=== PATIENT | female | born 1985 | race Caucasian/White ===

== ENCOUNTER 2017-04-15 18:45 | Inpatient (IN) | payer OTHER ==
[2017-04-15] MEDS ORDERED: TUBERCULIN PPD 5 TU/0.1ML SYRINGE (IN PATIENT USE ONLY) ID ONE (19:15)
[2017-04-15 19:50] VITALS: BMI 29.9
[2017-04-15] MEDS ORDERED: AMPICILLIN - 2 GM in SODIUM CHLORIDE 100 ML IVPB ONE (20:36)
[2017-04-15] MEDS ORDERED: OXYTOCIN 15 UNITS/ LR 250 ML 15 UNIT/250 ML INFUS.BAG IVPB SCH (20:45)
[2017-04-15] MEDS: DEXTROSE 5%-LACTATED RINGERS 1,000 ML IV SCH (20:45)
[2017-04-15 20:51] LABS: BASO % 0.1 % (0-2.0); EOS % 1.4 % (0-4.5); MCH 32.5 pg (25.7-33.7); MCHC 33.3 g/dl (32.0-36.0); MEAN CELL VOLUME 97.7 fl (80-96); MEAN PLT VOLUME 9.5 fl (7.5-11.1); NEUT % 74.1 % (42.8-82.8); PLATELET COUNT 258 K/MM3 (134-434); RDW 12.8 % (11.6-15.6); WHITE BLOOD COUNT 11.6 K/mm3 (4.0-10.0)
--- NOTE | 2017-04-15 20:54 | HP ---
Past Medical History - Admission History of Present Illness: 31 yo @ 40 3/7 wks LMP consistent with first trimester ultrasound, EDC complicated by: 1. GBS positive 2. 70 lb weight gain - normal BP; 24 h urine protein (04/07/17) - 304 EFW (04/11/17) - 3851 96% 3. choroid plexus cyst - normal aneuploidy screen 4. Abnormal GCT 141 - GTT WNL x 2 Patient presented for scheduled induction of labor, noted to have spontaneous rupture of membrane, clear fluid at 1830. She reports irregular contractions, no vaginal bleeding. She endorses movement. History Source: Patient Limitations to Obtaining History: No Limitations - Past Medical History Cardiovascular: No: HTN Pulmonary: No: Asthma Gastrointestinal: No: GERD ...: 1 ...Para: 0 ...Term: 0 ...: 0 ...Spon : 0 ...Induced : 0 ...Multiple Gestation: 0 ...LMP: 07/06/16 ... Weeks Gestation by Dates: 40.3 ...EDC by Dates: 04/12/17 ...EDC by Sono: 04/12/17 Heme/Onc: No: Anemia - Past Surgical History Past Surgical History: Yes: None Hx Myomectomy: No Hx Transabdominal Cerclage: No - Smoking History Smoking history: Never smoked - Alcohol/Substance Use Hx Alcohol Use: No Home Medications - Allergies Allergies/Adverse Reactions: Allergies Allergy/AdvReac Type Severity Reaction Status Date / Time latex Allergy Mild Verified 04/13/17 22:16 - Home Medications Home Medications: Ambulatory Orders Vit No.130/Iron/FA [ Tablet] 1 tab PO DAILY 04/07/17 Ferrous Sulfate [Feosol] 325 mg PO Q2D 04/13/17 Family Disease History - Family Disease History Family History: Denies Review of Systems - Review of Systems Constitutional: reports: No Symptoms HENT: reports: No Symptoms Neck: reports: No Symptoms Cardiovascular: reports: No Symptoms Respiratory: reports: No Symptoms Gastrointestinal: reports: No Symptoms Genitourinary: reports: No Symptoms Musculoskeletal: reports: No Symptoms Integumentary: reports: No Symptoms Endocrine: reports: No Symptoms Hematology/Lymphatic: reports: No Symptoms Physical Exam - Maternity Vital Signs: Vital Signs Temperature 98.3 F 04/15/17 20:00 Pulse Rate 94 H 04/15/17 20:00 Respiratory Rate 18 04/15/17 20:00 Blood Pressure 127/75 04/15/17 20:00 O2 Sat by Pulse Oximetry (%) Constitutional: Yes: Well Nourished, No Distress, Calm Cardiovascular: Yes: Regular Rate and Rhythm Lungs: Clear to auscultation - Abdominal Exam/OB Number of Fetuses: Single Presentation: Vertex Contractions: Yes Regularity: Regular Intensity: Mild/Mod Monitor Mode: External - Vaginal Exam/OB Dilatation (cm): 1 Effacement (%): 50 Amniotic Membrane Status: Ruptured Amniotic Fluid: Yes: Clear Presentation: Vertex/Position Station: -3 - Physical Exam Extremities: Yes: WNL Edema: No Psychiatric: Yes: Alert, Oriented - Labs Lab Results: PNL: A positive, antibody negative; RPR NR; HBsAg negative; HIV negative HCV negative; Hg choco AA; GBS positive Hemorrhage Risk Assessment - Risk Factors Medium Risk Factors: Yes: None High Risk Factors: Yes: None Risk Score: 1 Risk Level: Medium Risk Assessment/Plan 31 yo @ 40 3/7 SROM 1. Admit to L&D 2. Consents reviewed and signed 3. GBS positive 4. Will start pitocin per protocol PRN 5. Will offer pain medication per patient's request 6. Will proceed with expectant management
[2017-04-15] MEDS ORDERED: AMPICILLIN SODIUM 2 GM VIAL ONE (21:01)
[2017-04-15 21:05] LABS: INR 0.88 (0.82-1.09); PROTHROMBIN TIME (PATIENT) 9.9 SEC (9.98-11.88)
[2017-04-15 21:07] LABS: ACTIVATED PTT 24.9 SECONDS (26.9-34.4)
[2017-04-15 21:13] LABS: ANION GAP 9 (8-16); CALCIUM 9.1 mg/dL (8.5-10.1); CO2 23 mmol/L (21-32); CREATININE 0.4 mg/dL (0.55-1.02); GLUCOSE,RANDOM 82 mg/dL (74-106)
[2017-04-15] MEDS ORDERED: PROMETHAZINE HCL 25 MG/1 ML VIAL IVPUSH ONE (22:14)
[2017-04-15] MEDS ORDERED: BUTORPHANOL TARTRATE 1 MG/ML VIAL IVPUSH ONE (22:14)
[2017-04-16] MEDS ORDERED: AMPICILLIN SODIUM 1 GM VIAL ONE ×5 (00:46→17:05)
[2017-04-16] MEDS: AMPICILLIN - 1 GM in SODIUM CHLORIDE 100 ML IVPB SCH ×5 (00:56→17:00)
[2017-04-16] MEDS ORDERED: OXYTOCIN 15 UNITS/ LR 250 ML 15 UNIT/250 ML INFUS.BAG IVPB ONE (01:15)
[2017-04-16] MEDS: DEXTROSE 5%-LACTATED RINGERS 1,000 ML IV SCH ×2 (05:50→14:00)
--- NOTE | 2017-04-16 07:25 | PN ---
Ante-Partal Exam - Subjective Subjective: Patient reports pain with contractions. Declines offer for pain medication. Vital Signs: Vital Signs Temperature 98.1 F 04/16/17 07:00 Pulse Rate 89 04/16/17 07:00 Respiratory Rate 20 04/16/17 07:00 Blood Pressure 138/84 04/16/17 07:00 O2 Sat by Pulse Oximetry (%) Bleeding: No Headache: No Visual changes: No Right upper quadrant pain: No - Contractions Contractions: Yes Regularity: Regular Intensity: Mod/Strong Monitor Mode: External - Exam during Labor Heart Rate: 130 Variability: Moderate Category: I Monitor Accelerations: Present Monitor Decelerations: None Exam: Vaginal Dilatation (cm): 2 Effacement (%): 80 Amniotic Membrane Status: Ruptured Amniotic Fluid: Clear Presentation: Vertex Station: -2 - Intrapartum Hemorrhage Risk Medium Risk Factors: None High Risk Factors: None Risk Score: 0 Risk Level: Low Risk - Assessment/Plan Assessment/Plan: 31 yo pitocin augmentation of labor 1. Pitocin on 5, good cervical change, will continue pitocin per protocol 2. GBS positive, will continue ampicillin 3. Will offer pain medication upon patient request 4. Will continue expectant management.
--- NOTE | 2017-04-16 10:28 | PN ---
Progress Note, Labor Vaginal Exam #2 Labor Exam Date: 04/16/17 Labor Exam Time: 10:15 Heart Rate (range): 130 Dilatation: 4 Effacement (%): 80 Amniotic Membrane Status: Ruptured Presentation: Vertex/Position Station: -1 Remarks: 31 yo P0 @ 40+wks Category 1 FHR VSS, afebrile In early labor Monitor BPs 15min discussion about R/B/A to epidural Anesthesia consult recommended cont. monitoring progress of labor EFW 8lb
[2017-04-16] MEDS ORDERED: ELECTROLYTE-148 SOLN 500 ML IV ONE ×2 (16:45→17:45)
[2017-04-16] MEDS ORDERED: FENTANYL/BUPIVACAINE/NS/PF - PCEA - 50 ML DISP.SYRIN EP ONE (17:04)
[2017-04-16] MEDS ORDERED: OXYTOCIN 20 UNITS in 0.9% NS 20 UNIT/1,000 ML INFUS.BAG IV ONE (20:13)
--- NOTE | 2017-04-16 20:14 | PN ---
Progress Note, Labor Vaginal Exam #3 Labor Exam Date: 04/16/17 Labor Exam Time: 19:30 Heart Rate (range): 130s + accels, - decels Dilatation: 5 Effacement (%): 90% Amniotic Membrane Status: Ruptured Presentation: Vertex/Position Station: -1 (31yo P 0 @ 40+ wks IOL for LOF and being postterm on Pitocin of 6mU/min, no progress of labor in 10hr Excessive Weight gain, likely CPD Offered c/section Risks, benefits, alternatives explained Anethesia and Peds aware)
[2017-04-16] MEDS ORDERED: OXYTOCIN 10 UNITS/ML VIAL ONE (20:41)
[2017-04-16] MEDS ORDERED: KETOROLAC TROMETHAMINE 30 MG/1 ML VIAL ONE (21:02)
[2017-04-16] MEDS ORDERED: BENZOCAINE 20% 57 GM BOTTLE TP PRN (21:48)
[2017-04-16] MEDS ORDERED: WITCH HAZEL 50% (TUCKS) 40 PAD/JAR PAD TP PRN (21:48)
[2017-04-16] MEDS ORDERED: IBUPROFEN 800 MG/8 ML IJ IVPB PRN (21:48)
[2017-04-16] MEDS ORDERED: METHYLERGONOVINE MALEATE 0.2 MG/1 ML AMP IM PRN (21:48)
[2017-04-16] MEDS ORDERED: BENZOCAINE 28 GM HEMORRHOIDAL OINTMENT PR PRN (21:48)
[2017-04-16] MEDS ORDERED: IBUPROFEN 600 MG TABLET (FP) PO PRN (21:48)
[2017-04-16] MEDS ORDERED: diphenhydrAMINE HCL 25 MG CAPSULE (FP) PO PRN (21:48)
[2017-04-16] MEDS ORDERED: oxyCODONE HCL 5 MG TABLET PO PRN ×2 (21:48)
--- NOTE | 2017-04-16 21:56 | OP ---
Operative Note - Note: Operative Date: 04/16/17 Pre-Operative Diagnosis: 31yo P0 @ 40+ wks PROM, IOL, CPD Operation: Primary c/section Post-Operative Diagnosis: Same as Pre-op Surgeon: Abi Salas Heavy Equipment Field Mechanic: Az Newsome Anesthesiologist/OPINION POLLS SURVEY WORKER: Tammy Peck Anesthesia: Epidural Specimens Removed: 1. Viable Baby boy, APGARS 9/9, 8lb. 2. Full term placenta Estimated Blood Loss (mls): 500 Drains, Volume Out (mls): 500 Fluid Volume Replaced (mls): 1,200 Operative Report Dictated: Yes
[2017-04-16] MEDS ORDERED: OXYTOCIN 20 UNITS in 0.9% NS 20 UNIT/1,000 ML INFUS.BAG IV SCH (22:00)
[2017-04-16] MEDS ORDERED: DEXTROSE 5%-LACTATED RINGERS 1,000 ML IV SCH (22:00)
--- NOTE | 2017-04-16 22:06 | PN ---
Delivery - Delivery Section: Primary Type of Anesthesia: Epidural Episiotomy/Laceration: None EBL (cc): 500 Delivery, Single - Stages of Labor Date 1st Stage Initiatied: 04/15/17 Time 1st Stage Initiated: 18:45 Date of Delivery: 04/16/17 Time of Delivery: 20:50 Date Placenta Delivered: 04/16/17 Time Placenta Delivered: 20:51 Placenta: Yes: Expressed - Condition of Transportation Associate/Optical Glass Etcher Present: No Gender: Male Position: Left, OA - 1 Minute Total Score: 9 5 Minutes Total Score: 9 - [place] Feeding Plan Initial Plan: Exclusive throughout hospitalization Remarks - Remarks Remarks: See Op note
[2017-04-17] MEDS ORDERED: CEFAZOLIN 1 GM/D5W 50 ML IVPB SCH (02:00)
[2017-04-17] MEDS: CEFAZOLIN 1 GM PUSH 1 GM/10 ML DISP.SYRIN IVPUSH SCH ×2 (02:48→09:49)
[2017-04-17 08:26] LABS: BASO % 0.2 % (0-2.0); EOS % 0.3 % (0-4.5); MCH 31.9 pg (25.7-33.7); MCHC 32.8 g/dl (32.0-36.0); MEAN CELL VOLUME 97.4 fl (80-96); MEAN PLT VOLUME 8.6 fl (7.5-11.1); NEUT % 82.9 % (42.8-82.8); PLATELET COUNT 208 K/MM3 (134-434); RDW 12.8 % (11.6-15.6); WHITE BLOOD COUNT 13.7 K/mm3 (4.0-10.0)
--- NOTE | 2017-04-17 12:03 | PN ---
Progress Note (short form) - Note Progress Note: pod 1c/o mild cramps, no excess vaginal bleeding CBC, BMP 04/17/17 08:00 04/15/17 20:14 Last Vital Signs Temp Pulse Resp BP Pulse Ox 99.2 F 111 H 18 119/69 98 04/17/17 06:00 04/17/17 06:00 04/17/17 06:00 04/17/17 06:00 04/16/17 22:35 abdomen soft, no distension, no cva incision dry, clean no calf tenderness plan ambulate, advance diet, pain management
--- NOTE | 2017-04-17 13:26 | PN ---
Progress Note (short form) - Note Progress Note: POD #1 - s/p under epidural anesthesia with duramorph. VSS. Pt. doing well, resting comfortably in bed. No complaints. Good pain control. No apparent antesthetic complications noted. Continue current care.
[2017-04-17] MEDS ORDERED: BISACODYL 10 MG SUPP.RECT RC PRN (21:48)
[2017-04-17] MEDS: ACETAMINOPHEN 325 MG TABLET (FP) PO PRN (22:53)
[2017-04-17] MEDS: SIMETHICONE 80 MG TAB.CHEW (FP) PO PRN (22:53)
[2017-04-17] MEDS: IBUPROFEN 600 MG TABLET (FP) PO PRN (22:54)
--- NOTE | 2017-04-18 08:18 | PN ---
Post Progress Note - Subjective Subjective: No complaints Post Day: 2 Type of Delivery: Primary C/S Vital Signs: Vital Signs Temperature 98.9 F 04/17/17 21:00 Pulse Rate 115 H 04/17/17 21:00 Respiratory Rate 18 04/17/17 21:00 Blood Pressure 121/75 04/17/17 21:00 O2 Sat by Pulse Oximetry (%) 98 04/16/17 22:35 Breast Exam: Yes: Soft Uterus: Yes: Fundus Firm, Fundus below umbilicus, Non-tender Incision: Yes: Sutures intact Abdomen/GI: Yes: Abdomen soft, Passing flatus, Tolerating PO Lochia: Yes: Rubra Lochia, amount: Small Extremities: Yes: Calves non-tender, Edema (trace) Perineum: Yes: Intact Activity: Ambulating - Labs Labs: CBC WBC 13.7 K/mm3 (4.0-10.0) H 04/17/17 08:00 RBC 3.13 M/mm3 (3.60-5.2) L 04/17/17 08:00 Hgb 10.0 GM/dL (10.7-15.3) L 04/17/17 08:00 Hct 30.5 % (32.4-45.2) L 04/17/17 08:00 MCV 97.4 fl (80-96) H 04/17/17 08:00 MCH 31.9 pg (25.7-33.7) 04/17/17 08:00 MCHC 32.8 g/dl (32.0-36.0) 04/17/17 08:00 RDW 12.8 % (11.6-15.6) 04/17/17 08:00 Plt Count 208 K/MM3 (134-434) 04/17/17 08:00 MPV 8.6 fl (7.5-11.1) 04/17/17 08:00 Neutrophils % 82.9 % (42.8-82.8) H 04/17/17 08:00 Lymphocytes % 9.1 % (8-40) D 04/17/17 08:00 Monocytes % 7.5 % (3.8-10.2) 04/17/17 08:00 Eosinophils % 0.3 % (0-4.5) 04/17/17 08:00 Basophils % 0.2 % (0-2.0) 04/17/17 08:00 Assessment/Plan 31yo P1 s/p primary LT C/S, doing well stable, afebrile. Asymptomatic for anemia care instructions reviewed. Continue routine postop care. Ambulation encouraged.
--- NOTE | 2017-04-18 08:46 | DS ---
Physical Exam-PORT SURVEYOR Vital Signs: Vital Signs Temperature 98.9 F 04/17/17 21:00 Pulse Rate 115 H 04/17/17 21:00 Respiratory Rate 18 04/17/17 21:00 Blood Pressure 121/75 04/17/17 21:00 O2 Sat by Pulse Oximetry (%) 98 04/16/17 22:35 Constitutional: Yes: Well Nourished, No Distress, Calm Eyes: Yes: WNL, Conjunctiva Clear HENT: Yes: WNL, Atraumatic, Normocephalic Neck: Yes: WNL, Supple, Trachea Midline Cardiovascular: Yes: WNL, Regular Rate and Rhythm Respiratory: Yes: WNL, Regular, CTA Bilaterally Gastrointestinal: Yes: WNL, Normal Bowel Sounds, Soft, Abdomen, Obese ...Rectal Exam: Yes: Deferred Renal/: Yes: WNL External Genitalia: Yes: Normal ....Post : Yes: Uterus firm, Uterus non-tender Breast(s): Yes: WNL Musculoskeletal: Yes: WNL Extremities: Yes: WNL Edema: Yes Edema: LLE: Trace, RLE: Trace Integumentary: Yes: WNL Wound/Incision: Yes: Clean/Dry, Well Approximated, Sutures Intact Neurological: Yes: WNL, Alert, Oriented ...Motor Strength: WNL Psychiatric: Yes: WNL, Alert, Oriented Labs: CBC, BMP 04/17/17 08:00 04/15/17 20:14 Delivery - Delivery Section: Primary Type of Anesthesia: Epidural Episiotomy/Laceration: None EBL (cc): 500 Delivery, Single - Stages of Labor Date 1st Stage Initiatied: 04/15/17 Time 1st Stage Initiated: 18:45 Date of Delivery: 04/16/17 Time of Delivery: 20:50 Time Placenta Delivered: 20:51 Placenta: Yes: Expressed - Condition of Infant Mechanical Assembly/Furniture Technician Present: No Infant Gender: Male Weight: 3.629 kg Position: Left, OA Total Hours ROM (Hrs/Mins): 26 HOURS/5 MINUTES - 1 Minute Total Score: 9 5 Minutes Total Score: 9 - [place] Feeding Plan Initial Plan: Exclusive throughout hospitalization Discharge Summary Reason For Visit: LABOR ADMIT Post term Excessive weight gain Procedures: Principal: Primary LT C/S Hospital Course: Normal postop recovery Condition: Good - Instructions Diet, Activity, Other Instructions: Physical activity Resume your normal everyday activity as tolerated no heavy lifting or exercise until seen by your surgeon. You may walk unlimited saúl of and climb stairs. You may resume driving the car when you feel safe and comfortable behind the wheel. No sexual activity as instructed. Wound care If you have a bandage, leave it on, and keep dry for 48-72 hours. After that time discard the outer bandage. If they are tapes on the skin under the out of bandage leave them in place. They will peel off in the next 7 to 10 days. Do Not Peel them off. You may shower the day after surgery. If there are tapes present on the skin, you may shower over them. Diet There are no dietary restrictions. Eat healthy, high-fiber foods. Drink 6 to 8 glasses of liquid each day. This will assist in keeping your bowels are regular. Pain management You may take Tylenol or acetaminophen or Ibuprofen (for example, Motrin, Advil etc.) from my pain prescription medication is ordered should be taken as prescribed for moderate to severe pain. Call MD for any of the following: Severe pain not relieved by medication Fever of 101 or higher Excessive bleeding or drainage on dressing Inability to urinate Referrals: Abi Salas MD [Staff Physician] - Disposition: HOME - Home Medications Comprehensive Discharge Medication List: Ambulatory Orders Vit No.130/Iron/Folic [ Tablet] 1 tab PO DAILY 04/07/17 Ferrous Sulfate [Feosol] 325 mg PO Q2D 04/13/17
[2017-04-18] MEDS: IBUPROFEN 600 MG TABLET (FP) PO PRN ×2 (14:10→21:58)
[2017-04-18] MEDS: ACETAMINOPHEN 325 MG TABLET (FP) PO PRN ×2 (14:11→21:58)
[2017-04-18] MEDS: SIMETHICONE 80 MG TAB.CHEW (FP) PO PRN ×2 (14:12→21:57)
[2017-04-18] MEDS ORDERED: SENNOSIDES/DOCUSATE COMBO (SENNA PLUS) TABLET (UD) PO PRN ×2 (21:51→22:00)
--- NOTE | 2017-04-19 07:33 | PN ---
Post Progress Note - Subjective Subjective: Patient without acute complaints. Reports tolerating oral intake without nausea or vomiting. Ambulating without dizziness. Denies fevers or chills. Pain well controlled with oral pain medication. without difficulty. Passing flatus. Post Day: 3 Type of Delivery: Primary C/S Vital Signs: Vital Signs Temperature 98.1 F 04/18/17 22:00 Pulse Rate 105 H 04/18/17 22:00 Respiratory Rate 18 04/18/17 22:00 Blood Pressure 122/75 04/18/17 22:00 O2 Sat by Pulse Oximetry (%) 98 04/16/17 22:35 Breast Exam: Yes: Engorged Uterus: Yes: Fundus Firm Incision: Yes: Sutures intact. No: Redness, Oozing Abdomen/GI: Yes: Abdomen soft, Tender (mild incisional), Passing flatus, Tolerating PO. No: Abdominal Distention Lochia: Yes: Serosa Lochia, amount: Small Extremities: Yes: Calves non-tender. No: Edema Activity: Ambulating - Labs Labs: CBC WBC 13.7 K/mm3 (4.0-10.0) H 04/17/17 08:00 RBC 3.13 M/mm3 (3.60-5.2) L 04/17/17 08:00 Hgb 10.0 GM/dL (10.7-15.3) L 04/17/17 08:00 Hct 30.5 % (32.4-45.2) L 04/17/17 08:00 MCV 97.4 fl (80-96) H 04/17/17 08:00 MCH 31.9 pg (25.7-33.7) 04/17/17 08:00 MCHC 32.8 g/dl (32.0-36.0) 04/17/17 08:00 RDW 12.8 % (11.6-15.6) 04/17/17 08:00 Plt Count 208 K/MM3 (134-434) 04/17/17 08:00 MPV 8.6 fl (7.5-11.1) 04/17/17 08:00 Neutrophils % 82.9 % (42.8-82.8) H 04/17/17 08:00 Lymphocytes % 9.1 % (8-40) D 04/17/17 08:00 Monocytes % 7.5 % (3.8-10.2) 04/17/17 08:00 Eosinophils % 0.3 % (0-4.5) 04/17/17 08:00 Basophils % 0.2 % (0-2.0) 04/17/17 08:00 Assessment/Plan 31 yo POD # 3 s/p primary CD, afebrile, vital signs stable, doing well 1. Patient stable for discharge home today. 2. Patient encouraged to contact MD for: - Severe pain not controlled by oral pain medication - Fevers or chills - Nausea or vomiting, intolerance of oral intake - Incision redness, tenderness or discharge 3. Patient to follow up in office in 1-2 weeks for incision check, 4-6 weeks for visit
[2017-04-19 08:29] VITALS: BP 117/75; PULSE 86; TEMP 97.9
[2017-04-19 08:36] LABS: BASO % 0.2 % (0-2.0); EOS % 3.4 % (0-4.5); MCH 32.4 pg (25.7-33.7); MCHC 33.4 g/dl (32.0-36.0); MEAN CELL VOLUME 97.2 fl (80-96); MEAN PLT VOLUME 8.7 fl (7.5-11.1); NEUT % 74.4 % (42.8-82.8); PLATELET COUNT 250 K/MM3 (134-434); RDW 12.8 % (11.6-15.6); WHITE BLOOD COUNT 10.6 K/mm3 (4.0-10.0)
[2017-04-19] MEDS: IBUPROFEN 600 MG TABLET (FP) PO PRN (10:00)
[2017-04-19] MEDS: ACETAMINOPHEN 325 MG TABLET (FP) PO PRN (10:01)
[2017-04-19] MEDS: SIMETHICONE 80 MG TAB.CHEW (FP) PO PRN (10:02)
--- NOTE | 2017-04-20 17:17 | PATH ---
Surgical Pathology Report Patient Name: ANGELA GAGE Med. Rec. #: [id number] /Age/Gender: 1985 (Age: 31) / F Account: [id number] Location: [facility] OBS/SHAFT HEADMAN Taken: 04/16/2017 Received: 04/17/2017 Reported: 04/20/2017 Physicians: Tressa Walsh Specimen(s) Received PLACENTA Clinical History , failure to progress Final Diagnosis PLACENTA, SECTION: 396 G THIRD TRIMESTER PLACENTA WITH TRIVASCULAR UMBILICAL CORD. PLACENTAL MEMBRANES WITH FOCAL ACUTE CHORIOAMNIONITIS. Electronically Signed Rebecca Lee M.D. Gross Description The specimen is received fresh labeled placenta and is a 396 gram, 19.0 x 14.5 x 2.0 cm. placenta with attached membranes and umbilical cord. The attached membranes are escobar, translucent with focal opacities and insert marginally. The umbilical cord measures 35 cm. in length and averages 1.1 cm. in diameter. The cord inserts eccentrically, 4.5 cm. to the nearest margin. No true knots or strictures are identified. Cut surface of the umbilical cord reveals 3 vessels. The surface is levy-blue with minimal fibrin deposition and appropriate caliber vessels. The maternal surface is red-brown with focal defects. Sectioning reveals red-brown, spongy parenchyma. No lesions are identified. Rooms Director sections are submitted in three cassettes as follows: 1- membrane rolls and umbilical cord; 2-3- full thickness sections of placenta. 04/19/2017 [facility]04/19/2017
== END 2017-04-19 11:33 | disposition home or self-care (01) | DRG 766 ==
LOC: JLDR 18:45 → J3W 04-16 23:55
PROVIDERS: ADMIT Obstetrics & Gynecology; ATTEND Obstetrics & Gynecology
PROC: 10D00Z1 Extraction of Products of Conception, Low, Open Approach (ICD-10-PCS; principal; 2017-04-16)
DX: O42.02 Full-term premature rupture of membranes, onset of labor within 24 hours of rupture (principal); O62.1 Secondary uterine inertia; O48.0 Post-term pregnancy; O99.824 Streptococcus B carrier state complicating childbirth; O26.893 Other specified pregnancy related conditions, third trimester; G93.0 Cerebral cysts; Z37.0 Single live birth; Z3A.40 40 weeks gestation of pregnancy
CPT/HCPCS: 36415; 80048; 85025; 85610; 85730; 86593; 86850; 86900; 86901; 88307-TC

== ENCOUNTER 2017-05-22 06:28 | Day surgery (SDC) | payer OTHER ==
[2017-05-18 08:26] VITALS: BMI 25.0
[2017-05-22] MEDS ORDERED: METRONIDAZOLE 500 MG PREMIXED 500 MG/100 ML MG IVPB ONE (07:41)
[2017-05-22] MEDS ORDERED: PROPOFOL 20 ML ONE ×3 (07:49→08:02)
[2017-05-22] MEDS ORDERED: METRONIDAZOLE 250 MG IVPB ONE (07:56)
[2017-05-22] MEDS ORDERED: oxyCODONE HCL 5 MG TABLET PO PRN (08:28)
[2017-05-22] MEDS ORDERED: ONDANSETRON 4 MG/2 ML VIAL IVPUSH PRN ×2 (08:28)
[2017-05-22] MEDS ORDERED: IBUPROFEN 600 MG TABLET (FP) PO PRN (08:28)
[2017-05-22] MEDS ORDERED: IBUPROFEN 800 MG/8 ML IJ IVPB PRN (08:28)
[2017-05-22] MEDS ORDERED: ACETAMINOPHEN 1000 MG/100 ML VIAL (NON FORMULARY) IVPB ONE (08:28)
--- NOTE | 2017-05-22 08:28 | OP ---
Operative Note - Note: Operative Date: 05/22/17 Pre-Operative Diagnosis: 32yo P1 s/p c/section with retained intracervical mambranes Operation: Cervical dialation and suction Findings: 2cm retained piece of necrotic debris suctioned Post-Operative Diagnosis: Same as Pre-op Surgeon: Abi Salas Anesthesiologist/HAND COKE DRAWER: Jose Miguel Allen Anesthesia: MAC Estimated Blood Loss (mls): 10 Instrument used (Debridements only): plastic suction curette 7G Drains, Volume Out (mls): 100 Fluid Volume Replaced (mls): 400 Operative Report Dictated: Yes
[2017-05-22] MEDS ORDERED: ELECTROLYTE-148 SOLN 1,000 ML IV SCH (08:30)
[2017-05-22] MEDS ORDERED: LACTATED RINGERS SOLUTION 1,000 ML IV SCH (08:30)
[2017-05-22] MEDS ORDERED: ACETAMINOPHEN INJECTION 100 ML IVPB ONE (08:31)
[2017-05-22] MEDS ORDERED: IBUPROFEN 800 MG/8 ML IJ IVPB ONE (08:40)
[2017-05-22] MEDS ORDERED: ONDANSETRON 4 MG/2 ML VIAL ONE (08:51)
[2017-05-22 09:39] VITALS: TEMP 97.8
[2017-05-22 11:47] VITALS: BP 100/64; PULSE 70
--- NOTE | 2017-05-22 23:03 | OP ---
DATE OF OPERATION: 05/22/2017 PREOPERATIVE DIAGNOSIS: A 32-year-old para 1 status post with retained intracervical membranes. OPERATION: Cervical dilation and suction. POSTOPERATIVE DIAGNOSIS: A 32-year-old para 1 status post with retained intracervical membranes. FINDINGS: 2 cm x 1 cm retained piece of necrotic debris, suctioned. SURGEON: Celeste Lawrence M.D. ANESTHESIOLOGIST: Jose Miguel Allen D.O. ANESTHESIA: MAC ESTIMATED BLOOD LOSS: 10 mL INSTRUMENTS USED: Plastic suction curet 7 gauge drain. URINE OUTPUT: 100 mL. FLUID REPLACED: 400 mL. DESCRIPTION OF OPERATIVE PROCEDURE: After assuring informed consent, patient was brought to the operating room where she was placed in dorsal lithotomy position. Mejia speculum was used to identify the cervix. Anterior lip of cervix was grasped with single-toothed tenaculum, and cervix was gradually dilated to accommodate 7-gauge plastic suction curet only to the length of the cervix. The vacuum suction was applied to the 7-gauge plastic curet and intracervical contents were suctioned. The debris was identified and visualized while suctioned. Subsequently a small tear of the tenaculum was noted on the anterior cervical lip and repaired with [id number] was 2-0 on needle, excellent hemostasis was achieved. All instruments removed from the vagina. Patient was placed back in the supine position and brought to the recovery room in stable condition. Suction debris sent for pathology. CELESTE LAWRENCE M.D. RACHEL/[id number]
--- NOTE | 2017-05-23 16:38 | PATH ---
Surgical Pathology Report Patient Name: ANGELA GAGE [facility]. Rec. #: [id number] /Age/Gender: 1985 (Age: 32) / F Account: [id number] Location: [facility] SURGICAL Taken: 05/22/2017 Received: 05/22/2017 Reported: 05/23/2017 Physicians: Abi Salas M.D. Specimen(s) Received PRODUCTS OF CONCEPTION Clinical History Retained placenta without hemorrhage Final Diagnosis CERVIX, "RETAINED PRODUCTS OF CONCEPTION", DILATATION AND CURETTAGE: POLYPOID FRAGMENTS OF SECRETORY ENDOMETRIUM, LOWER UTERINE SEGMENT, SCANT NECROTIC DECIDUA, AND BENIGN ENDOCERVICAL TISSUE. Electronically Signed Rebecca Lee M.D. Gross Description Received in formalin labeled "retained products of conception," is a 2.5 x 2.2 x 0.3 cm aggregate of escobar-brown soft tissue fragments. No definite villous tissue or somatic tissue is identified. The formalin is filtered and the specimen is entirely submitted in 2 cassettes. /05/22/2017 saudi/05/22/2017
== END 2017-05-22 11:30 | disposition home or self-care (01) ==
LOC: JASU-SURG 06:28
PROVIDERS: ATTEND Obstetrics & Gynecology
PROC: 0UDB7ZZ Extraction of Endometrium, Via Natural or Artificial Opening (ICD-10-PCS; principal; 2017-05-22 07:30)
DX: O73.1 Retained portions of placenta and membranes, without hemorrhage (principal)
CPT/HCPCS: 84703; 94760

== ENCOUNTER 2018-03-05 13:25 | Inpatient (IN) | payer OTHER ==
[2018-03-05] MEDS ORDERED: BETAMET ACET/BETAMET NA PH 30 MG/5 ML VIAL IM ONE (14:15)
[2018-03-05] MEDS ORDERED: AMPICILLIN - 2 GM in SODIUM CHLORIDE 100 ML IVPB ONE ×2 (14:18→17:30)
[2018-03-05] MEDS ORDERED: OXYTOCIN 20 UNITS in 0.9% NS 20 UNIT/1,000 ML INFUS.BAG IV SCH (14:30)
[2018-03-05 16:18] LABS: BASO % 0.1 % (0-2.0); EOS % 2.3 % (0-4.5); HEMATOCRIT 30.4 % (32.4-45.2); HEMOGLOBIN 10.7 GM/dL (10.7-15.3); LYMPH % 11.9 % (8-40); MCH 34.8 pg (25.7-33.7); MCHC 35.1 g/dl (32.0-36.0); MEAN CELL VOLUME 98.9 fl (80-96); MEAN PLT VOLUME 8.9 fl (7.5-11.1); MONO % 6.4 % (3.8-10.2); NEUT % 79.3 % (42.8-82.8); PLATELET COUNT 201 K/MM3 (134-434); RBC 3.08 M/mm3 (3.60-5.2); RDW 13.8 % (11.6-15.6); WHITE BLOOD COUNT 8.3 K/mm3 (4.0-10.0)
[2018-03-05] MEDS ORDERED: MAGNESIUM SULFATE 20GM/500ML - 20 GM/500 ML INFUS.BAG ONE (16:36)
[2018-03-05] MEDS ORDERED: MAGNESIUM 4GM/H20 - 4 GM/100 ML IVPB IVPB ONE ×3 (16:36→17:28)
--- NOTE | 2018-03-05 16:36 | HP ---
Past Medical History - Primary Care Physician PCP:: Abi Salas - Past Medical History ...: 2 ...Para: 1 ...Term: 1 ...: 0 ...Spon : 0 ...Induced : 0 ...LMP: 07/12/17 ... Weeks Gestation by Dates: 33.5 ...EDC by Dates: 04/18/18 ...EDC by Sono: 04/18/18 - Past Surgical History Past Surgical History: Yes: None - Smoking History Smoking history: Never smoked - Alcohol/Substance Use Hx Alcohol Use: No Home Medications - Allergies Allergies/Adverse Reactions: Allergies Allergy/AdvReac Type Severity Reaction Status Date / Time latex Allergy Intermediate Verified 03/05/18 14:33 - Home Medications Home Medications: Ambulatory Orders Pnv No.95/Ferrous Fum/Folic AC [ Vitamin Tablet] 1 each PO DAILY Physical Exam - Maternity Vital Signs: Vital Signs Temperature 98.6 F 03/05/18 16:00 Pulse Rate 90 03/05/18 16:00 Respiratory Rate 18 03/05/18 16:00 Blood Pressure 129/70 03/05/18 16:00 O2 Sat by Pulse Oximetry (%) - Labs Lab Results: CBC, BMP 03/05/18 16:00
[2018-03-05] MEDS ORDERED: MAGNESIUM SULFATE 20GM/500ML - 20 GM/500 ML INFUS.BAG IVPB SCH ×2 (16:40→17:00)
[2018-03-05 16:44] LABS: ALBUMIN 2.7 g/dl (3.4-5.0); ALK PHOS 79 U/L (45-117); ANION GAP 9 MMOL/L (8-16); BILIRUBIN,TOTAL 0.3 mg/dL (0.2-1); BLOOD UREA NITROGEN 5 mg/dL (7-18); CALCIUM 8.6 mg/dL (8.5-10.1); CHLORIDE 104 mmol/L (98-107); CO2 24 mmol/L (21-32); CREATININE 0.4 mg/dL (0.55-1.3); GLUCOSE,RANDOM 118 mg/dL (74-106); POTASSIUM 3.9 mmol/L (3.5-5.1); SGOT/AST 14 U/L (15-37); SGPT/ALT 14 U/L (13-61); SODIUM 136 mmol/L (136-145); TOT PROT 6.3 g/dl (6.4-8.2)
[2018-03-05] MEDS ORDERED: DEXTROSE 5%-LACTATED RINGERS 1,000 ML IV SCH (17:00)
[2018-03-05] MEDS ORDERED: MAGNESIUM 4GM/H20 - 4 GM/100 ML IVPB IVPB SCH (17:00)
[2018-03-05 17:07] VITALS: BMI 29.1
[2018-03-05] MEDS ORDERED: AMPICILLIN SODIUM 2 GM VIAL ONE (17:25)
[2018-03-05 19:55] LABS: INR 0.92 (0.83-1.09); PROTHROMBIN TIME (PATIENT) 10.8 SEC (9.7-13.0)
--- NOTE | 2018-03-05 20:23 | PN ---
Ante-Partal Exam - Subjective Subjective: No complaints but feels occasional contractions. No bleeding. She is on IV Mag Sulphate and has no SOB or chest pain, or any other complaints Vital Signs: Vital Signs Temperature 98.8 F 03/05/18 16:20 Pulse Rate 97 H 03/05/18 16:20 Respiratory Rate 18 03/05/18 16:20 Blood Pressure 130/76 03/05/18 16:20 O2 Sat by Pulse Oximetry (%) Bleeding: No Headache: No Visual changes: No Right upper quadrant pain: No - Contractions Contractions: Yes Regularity: Irregular (q2-5min) Intensity: Mild Monitor Mode: External - Exam during Labor Heart Rate: 130 Variability: Moderate Heart Rate Location: Midline Category: I Monitor Accelerations: Present Monitor Decelerations: None Exam: Vaginal Dilatation (cm): 0.5 Effacement (%): 0 Amniotic Membrane Status: Intact Presentation: Transverse/Shoulder - Intrapartum Hemorrhage Risk Medium Risk Factors: None High Risk Factors: None Risk Score: 0 Risk Level: Low Risk - Assessment/Plan Assessment/Plan: Pt with labor and still virgil. The cervix is FT open and soft, but posterior and long. The fetus in transverse lie. The tracing is Category I and fetus does not reqire intervention. Plan to continue Mg Sulphate and increase the rate. No s/sx's of toxicity. Exam - Exam Vital Signs: Vital Signs (72 hours) 03/05/18 03/05/18 03/05/18 14:17 16:00 16:20 Temperature 98.0 F 98.6 F 98.8 F Pulse Rate 90 97 H Pulse Rate [ 111 H Brachial] Respiratory 18 18 18 Rate Blood Pressure 129/70 130/76 Blood Pressure 123/75 [Right Upper Arm] General: Alert, Oriented x3 HEENT: Atraumatic Lungs: Clear to auscultation, Normal air movement Cardiovascular: Regular rate Abdomen: Normal bowel sounds Extremities: No clubbing, No cyanosis, No edema Skin: No rashes, No breakdown, No significant lesion Neurological: Normal speech, Strength at 5/5 X4 ext, Normal tone, Reflexes 2+ Psych/Mental Status: Mental status NL
[2018-03-05] MEDS ORDERED: DEXTROSE 5%-LACTATED RINGERS 1,000 ML IV ONE (21:30)
--- NOTE | 2018-03-05 21:55 | PN ---
Ante-Partal Exam - Subjective Subjective: Pt has a Hickey in place and began complaining of urge to urinate. Then a lot of fluid was noted on the pad. Vital Signs: Vital Signs Temperature 98.8 F 03/05/18 16:20 Pulse Rate 97 H 03/05/18 16:20 Respiratory Rate 18 03/05/18 16:20 Blood Pressure 130/76 03/05/18 16:20 O2 Sat by Pulse Oximetry (%) Bleeding: No Headache: No Visual changes: No Right upper quadrant pain: No Pain (scale 1-10): 0 - Contractions Contractions: No - Exam during Labor Heart Rate: 120 Variability: Moderate Heart Rate Location: Midline Category: I Monitor Accelerations: Present Monitor Decelerations: None Exam: Vaginal Dilatation (cm): 0.5 Nitrazine Test: Negative Presentation: Transverse/Shoulder Remarks: Sterile speculum exam showed moderate amount of vaginal discharge that is Nitrozine negative. - Intrapartum Hemorrhage Risk Medium Risk Factors: None High Risk Factors: None Risk Score: 0 Risk Level: Low Risk - Assessment/Plan Assessment/Plan: Pt with suspected pROM. However, on exam there is no pooling and Nitrozine negative. Plan to monitor and repeat US.
[2018-03-05] MEDS: AMPICILLIN - 1 GM in SODIUM CHLORIDE 100 ML IVPB SCH (21:56)
[2018-03-05] MEDS ORDERED: AMPICILLIN SODIUM 1 GM VIAL ONE (21:58)
[2018-03-06] MEDS ORDERED: AMPICILLIN SODIUM 1 GM VIAL ONE ×3 (01:51→09:19)
[2018-03-06] MEDS: AMPICILLIN - 1 GM in SODIUM CHLORIDE 100 ML IVPB SCH ×4 (01:56→14:57)
[2018-03-06] MEDS ORDERED: MAGNESIUM SULFATE 20GM/500ML - 20 GM/500 ML INFUS.BAG ONE (02:45)
[2018-03-06] MEDS ORDERED: MAGNESIUM SULFATE 20GM/500ML - 20 GM/500 ML INFUS.BAG IVPB SCH ×2 (03:00→04:00)
--- NOTE | 2018-03-06 12:59 | PN ---
Ante-Partal Exam - Subjective Subjective: Patient reports no contractions Denies any pain, leakage of fluid or vaginal bleeding, + FH Vital Signs: Vital Signs Temperature 98.7 F 03/06/18 10:00 Pulse Rate 114 H 03/06/18 12:00 Respiratory Rate 18 03/06/18 12:00 Blood Pressure 129/61 03/06/18 12:00 O2 Sat by Pulse Oximetry (%) Bleeding: No Headache: No Visual changes: No Right upper quadrant pain: No - Contractions Contractions: No - Exam during Labor Heart Rate: 140 Variability: Moderate Category: I Monitor Accelerations: Present Monitor Decelerations: None - Intrapartum Hemorrhage Risk Medium Risk Factors: None High Risk Factors: None Risk Score: 0 Risk Level: Low Risk - Assessment/Plan Assessment/Plan: 32 yo HD # 2 admitted with labor, on magnesium, s/p BMZ #1 1. Plan for completion of BMZ course. Will DC magnesium and observe for contractions 2. If stable, consider DC home today
[2018-03-06] MEDS ORDERED: BETAMET ACET/BETAMET NA PH 30 MG/5 ML VIAL IM ONE (14:30)
--- NOTE | 2018-03-06 16:29 | PN ---
Ante-Partal Exam - Subjective Subjective: No complaints. No LOF, no VB. Pt reports good FM. Vital Signs: Vital Signs Temperature 98.6 F 03/06/18 16:00 Pulse Rate 105 H 03/06/18 16:00 Respiratory Rate 20 03/06/18 16:00 Blood Pressure 128/70 03/06/18 16:00 O2 Sat by Pulse Oximetry (%) Bleeding: No Headache: No Visual changes: No Right upper quadrant pain: No Pain (scale 1-10): 0 - Contractions Contractions: Yes Regularity: Irritability Intensity: Unaware Monitor Mode: External - Exam during Labor Heart Rate: 145 Variability: Moderate Heart Rate Location: Midline Category: I Monitor Accelerations: Present Monitor Decelerations: None Exam: Vaginal Dilatation (cm): 0.5 Effacement (%): 0 Amniotic Membrane Status: Intact Presentation: Vertex Remarks: OOP - Intrapartum Hemorrhage Risk Medium Risk Factors: None High Risk Factors: None Risk Score: 0 Risk Level: Low Risk - Assessment/Plan Assessment/Plan: 32yo P1 with labor that was successfully tocolysed. Pt is feeling well, not virgil but has occasional irritability. Plan to observe after MgSulfate off and discharge home. PTL precautions reviewed.
[2018-03-06 18:19] VITALS: BP 121/59; PULSE 99; TEMP 98.8
== END 2018-03-06 19:15 | disposition home or self-care (01) | DRG 833 ==
LOC: JDEL 13:25 → JLDR 16:20
PROVIDERS: ADMIT Obstetrics & Gynecology; ATTEND Obstetrics & Gynecology
DX: O47.03 False labor before 37 completed weeks of gestation, third trimester (principal); Z3A.33 33 weeks gestation of pregnancy
CPT/HCPCS: 36415; 76819-TC; 80053; 83735; 85025; 85610; 85730; 86593; 86850; 86900; 86901; 87081; 87086; 87110; 87389; 96372

== ENCOUNTER 2018-04-11 08:00 | Inpatient (IN) | payer OTHER ==
[2018-04-11] MEDS ORDERED: ELECTROLYTE-148 SOLN 500 ML IV ONE (08:25)
[2018-04-11 09:29] VITALS: BMI 29.7
[2018-04-11] MEDS ORDERED: METHYLERGONOVINE MALEATE 0.2 MG/1 ML AMP IM PRN (10:19)
[2018-04-11] MEDS ORDERED: CITRIC ACID/SODIUM CITRATE 30 ML UNIT-DOSE CUP PO ONE (10:19)
--- NOTE | 2018-04-11 10:19 | HP ---
Past Medical History - Primary Care Physician PCP:: Abi Salas - Admission Chief Complaint: 32yo P1 @ 39wks for elective c/section, no copmlains History of Present Illness: 1. Prior c/section x 1 - LST 2. Short interval, 3. PTL - s/p Celectone @ 32wks 4. Anemia - s/p iron transfusion 5. Flu shot and Tdap this - Past Medical History ...: 2 ...Para: 1 ...Term: 1 ...: 0 ...Spon : 0 ...Induced : 0 ...Multiple Gestation: 0 ...LMP: 07/12/17 ... Weeks Gestation by Dates: 38.4 ...EDC by Dates: 04/18/18 ...EDC by Sono: 04/18/18 - Past Surgical History Past Surgical History: Yes: None, Hx Myomectomy: No Hx Transabdominal Cerclage: No Additional Surgical History: D&C. Breast biopsy - Smoking History Smoking history: Never smoked Have you smoked in the past 12 months: No - Alcohol/Substance Use Hx Alcohol Use: No Home Medications - Allergies Allergies/Adverse Reactions: Allergies Allergy/AdvReac Type Severity Reaction Status Date / Time latex Allergy Intermediate Verified 04/11/18 10:11 - Home Medications Home Medications: Ambulatory Orders Pnv No.95/Ferrous Fum/Folic AC [ Vitamin Tablet] 1 each PO DAILY Physical Exam - Maternity Vital Signs: Vital Signs Temperature 97.9 F 04/11/18 08:25 Pulse Rate 82 04/11/18 10:00 Respiratory Rate 20 04/11/18 10:00 Blood Pressure 120/66 04/11/18 10:00 O2 Sat by Pulse Oximetry (%) Assessment/Plan 32yo P1 @ 39wks for Elective repeat c/section 1. Admit to L&D 2. Routine labs reviewed 3. Ancef internal medicine nurse practitioner to OR 4. Will proceed to OR
[2018-04-11] MEDS ORDERED: ELECTROLYTE-148 SOLN 1,000 ML IV SCH (10:30)
[2018-04-11] MEDS ORDERED: OXYTOCIN 20 UNITS in 0.9% NS 20 UNIT/1,000 ML INFUS.BAG IV SCH (10:30)
[2018-04-11] MEDS ORDERED: OXYTOCIN 20 UNITS in 0.9% NS 20 UNIT/1,000 ML INFUS.BAG IV ONE ×2 (10:37→13:45)
[2018-04-11] MEDS ORDERED: morphine SULFATE/Preservative Free 0.5 MG/ML (1cc Syringe) ONE (11:02)
[2018-04-11] MEDS ORDERED: ceFAZolin SODIUM 1 GM VIAL ONE (11:13)
[2018-04-11 12:16] LABS: VENOUS PC02 44.8 mmHg (38-52); VENOUS PH 7.34 (7.32-7.42); VENOUS PO2 34.1 mmHg (28-48)
[2018-04-11 12:19] LABS: ARTERIAL BLD GAS O2 SATURATION 17.7 % (90-98.9); ARTERIAL BLOOD GAS BASE EXCESS -2.1 meq/l (-2-2); ARTERIAL BLOOD GAS PO2 14.8 mmHg (80-100); ARTERIAL BLOOD GAS pH 7.25 (7.35-7.45)
[2018-04-11 12:22] LABS: ARTERIAL BLOOD GAS PCO2 61.2 mmHg (35-45)
[2018-04-11] MEDS ORDERED: ONDANSETRON 4 MG/2 ML VIAL IVPUSH PRN (12:42)
--- NOTE | 2018-04-11 12:42 | OP ---
Operative Note - Note: Operative Date: 04/11/18 Pre-Operative Diagnosis: 32yo P1 prior c/section for elective repeat Operation: 1st repeat LST c/section Findings: Viable female AMIRAH, APGARs 9/9, wt. 7.1lb Post-Operative Diagnosis: Same as Pre-op Surgeon: Abi Salas Lunchroom Worker: Julian Morrison Anesthesiologist/CUSTOMS BROKERAGE AGENT: Claritza Rodríguez Anesthesia: Spinal Specimens Removed: Placenta Estimated Blood Loss (mls): 600 Drains, Volume Out (mls): 300 Fluid Volume Replaced (mls): 2,000 Operative Report Dictated: Yes
--- NOTE | 2018-04-11 12:47 | PN ---
Delivery - Delivery Section: Repeat Type of Anesthesia: Spinal Episiotomy/Laceration: None EBL (cc): 600 Delivery, Single - Stages of Labor Date of Delivery: 04/11/18 Time of Delivery: 11:32 Date Placenta Delivered: 04/11/18 Time Placenta Delivered: 11:33 Placenta: Yes: Expressed - Condition of Infant Training Professional/Supervisor Lime Present: Yes Name: Maurizio Lima Gender: Female Weight: 7 lb 1 oz Position: Right, OA Total Hours ROM (Hrs/Mins): 3 mins - 1 Minute Total Score: 9 5 Minutes Total Score: 9 - [place] Feeding Plan Initial Plan: Exclusive throughout hospitalization Remarks - Remarks Remarks: Uncomplicated 1st time repeat c/section Viable female, AMIRAH, 7.1lb
[2018-04-11] MEDS ORDERED: ONDANSETRON 4 MG/2 ML VIAL ONE (15:10)
[2018-04-12] MEDS: ACETAMINOPHEN 325 MG TABLET (FP) PO PRN ×2 (05:49→21:13)
[2018-04-12] MEDS: IBUPROFEN 600 MG TABLET (FP) PO PRN ×2 (05:49→21:12)
[2018-04-12] MEDS: SIMETHICONE 80 MG TAB.CHEW (FP) PO PRN ×2 (05:49→21:12)
[2018-04-12 06:18] LABS: BASO % 0.3 % (0-2.0); EOS % 0.6 % (0-4.5); HEMATOCRIT 33.5 % (32.4-45.2); HEMOGLOBIN 11.1 GM/dL (10.7-15.3); LYMPH % 13.5 % (8-40); MCH 32.7 pg (25.7-33.7); MEAN CELL VOLUME 99.1 fl (80-96); MEAN PLT VOLUME 9.5 fl (7.5-11.1); MONO % 10.8 % (3.8-10.2); NEUT % 74.8 % (42.8-82.8); PLATELET COUNT 167 K/MM3 (134-434); RBC 3.38 M/mm3 (3.60-5.2); RDW 13.7 % (11.6-15.6)
--- NOTE | 2018-04-12 08:11 | PN ---
Progress Note (short form) - Note Progress Note: pod 1, s/p c/s , has mild low abdominal cramps, no excess vaginal bleeding CBC, BMP 04/12/18 05:45 Last Vital Signs Temp Pulse Resp BP Pulse Ox 98.5 F 98 H 20 117/64 98 04/12/18 05:54 04/12/18 05:54 04/12/18 06:00 04/12/18 05:54 04/11/18 14:30 abdomen soft, no distension, no cva incision dry, clean no calf tenderness no excess vaginal bleeding plan ambulate, advance diet pain management
--- NOTE | 2018-04-12 08:37 | PN ---
Progress Note (short form) - Note Progress Note: Post op day#1.S/P C Section under spinal with duramorph uneventful.Patient stable and has little pain for which she is on medication.No any anesthesia related problem.Patient Dc from the anesthesia care.
[2018-04-12] MEDS: ENOXAPARIN NA (PORCINE) 40 MG/0.4 ML DISP.SYRIN SQ SCH (09:48)
[2018-04-12] MEDS ORDERED: BISACODYL 10 MG SUPP.RECT RC PRN (10:19)
[2018-04-13] MEDS: SIMETHICONE 80 MG TAB.CHEW (FP) PO PRN ×2 (08:13→15:28)
[2018-04-13] MEDS: IBUPROFEN 600 MG TABLET (FP) PO PRN ×2 (08:14→15:28)
[2018-04-13] MEDS: ACETAMINOPHEN 325 MG TABLET (FP) PO PRN ×2 (08:15→15:27)
--- NOTE | 2018-04-13 09:32 | PN ---
Progress Note (short form) - Note Progress Note: pod2 doing well, no c/o had BM CBC, BMP 04/12/18 05:45 Last Vital Signs Temp Pulse Resp BP Pulse Ox 98.8 F 95 H 20 138/78 98 04/12/18 22:10 04/12/18 22:10 04/12/18 22:10 04/12/18 22:10 04/11/18 14:30 abdomen soft, no distension, no cva incision dry, clean no calf tenderness or edema plan ambulate for d/c home in am
[2018-04-13] MEDS: ENOXAPARIN NA (PORCINE) 40 MG/0.4 ML DISP.SYRIN SQ SCH (10:11)
[2018-04-14] MEDS: ACETAMINOPHEN 325 MG TABLET (FP) PO PRN ×2 (03:17→10:12)
[2018-04-14] MEDS: IBUPROFEN 600 MG TABLET (FP) PO PRN ×2 (03:17→10:12)
[2018-04-14] MEDS: SIMETHICONE 80 MG TAB.CHEW (FP) PO PRN ×2 (03:18→10:12)
[2018-04-14 07:38] LABS: BASO % 0.2 % (0-2.0); EOS % 2.8 % (0-4.5); HEMATOCRIT 31.1 % (32.4-45.2); LYMPH % 18.1 % (8-40); MCH 34.9 pg (25.7-33.7); MCHC 35.3 g/dl (32.0-36.0); MEAN CELL VOLUME 98.7 fl (80-96); MEAN PLT VOLUME 9.1 fl (7.5-11.1); MONO % 9.5 % (3.8-10.2); NEUT % 69.4 % (42.8-82.8); PLATELET COUNT 215 K/MM3 (134-434); RBC 3.15 M/mm3 (3.60-5.2); RDW 13.7 % (11.6-15.6); WHITE BLOOD COUNT 8.8 K/mm3 (4.0-10.0)
[2018-04-14] MEDS: ENOXAPARIN NA (PORCINE) 40 MG/0.4 ML DISP.SYRIN SQ SCH (10:08)
--- NOTE | 2018-04-14 11:16 | DS ---
Physical Exam-OUTPATIENT COORDINATOR Vital Signs: Vital Signs Temperature 98.0 F 04/13/18 20:37 Pulse Rate 79 04/13/18 20:37 Respiratory Rate 20 04/13/18 20:37 Blood Pressure 118/71 04/13/18 20:37 O2 Sat by Pulse Oximetry (%) 98 04/11/18 14:30 Constitutional: Yes: Well Nourished, No Distress, Calm Eyes: Yes: WNL, Conjunctiva Clear, EOM Intact HENT: Yes: WNL, Atraumatic, Normocephalic Neck: Yes: WNL, Supple, Trachea Midline Cardiovascular: Yes: WNL, Regular Rate and Rhythm Respiratory: Yes: WNL, Regular, CTA Bilaterally Gastrointestinal: Yes: WNL ...Rectal Exam: Yes: WNL Renal/: Yes: WNL ....Post : Yes: Uterus firm, Uterus non-tender, Slight lochia rubra Breast(s): Yes: WNL Musculoskeletal: Yes: WNL Extremities: Yes: WNL Edema: No Integumentary: Yes: WNL Neurological: Yes: WNL, Alert, Oriented ...Motor Strength: WNL Psychiatric: Yes: WNL, Alert, Oriented Labs: CBC, BMP 04/14/18 07:00 Delivery - Delivery Section: Repeat Type of Anesthesia: Spinal Episiotomy/Laceration: None EBL (cc): 600 Delivery, Single - Stages of Labor Date of Delivery: 04/11/18 Time of Delivery: 11:32 Time Placenta Delivered: 11:33 Placenta: Yes: Expressed - Condition of Grinding Machine Tender/Social Work Job Titles Present: Yes Name: Maurizio Lima Infant Gender: Female Weight: 7 lb 1 oz Position: Right, OA Total Hours ROM (Hrs/Mins): 3 mins - 1 Minute Total Score: 9 5 Minutes Total Score: 9 - [place] Feeding Plan Initial Plan: Exclusive throughout hospitalization Discharge Summary Reason For Visit: DELIVERY AFFECTING NEW BORN Procedures: Principal: repeat LCT c/s Condition: Good - Instructions Diet, Activity, Other Instructions: regular diet, folow up office 1 week, if fever, pain, heavy vaginal bleeding call MD Referrals: Abi Salas MD [Staff Physician] - Disposition: HOME - Home Medications Comprehensive Discharge Medication List: Ambulatory Orders Pnv No.95/Ferrous Fum/Folic AC [ Vitamin Tablet] 1 each PO DAILY Ibuprofen [Motrin -] 600 mg PO QID #28 tablet 04/13/18
[2018-04-14 12:26] VITALS: BP 140/80; PULSE 75; TEMP 98
--- NOTE | 2018-04-20 07:18 | OP ---
DATE OF OPERATION: 04/11/2018 PREOPERATIVE DIAGNOSIS: A 32-year-old, para 1, prior section, for elective repeat. OPERATION: Primary low-segment transverse section. FINDINGS: Viable female, right occiput anterior, 9 and 9, weight 7 pounds 1 ounce. POSTOPERATIVE DIAGNOSIS: A 32-year-old, para 1, prior section, for elective repeat. SURGEON: Abi Salas MD AGENCY LEGAL COUNSEL: Julian Morrison MD ANESTHESIOLOGIST: Claritza Rodríguez MD ANESTHESIA: Spinal. SPECIMEN REMOVED: Placenta. DESCRIPTION OF THE OPERATIVE PROCEDURE: After assuring informed consent, patient was brought to the operating room where she was placed in dorsal supine position with left lateral tilt. Abdomen was prepped and draped in sterile fashion. A Pfannenstiel skin incision was carried down with the scalpel and extended to the level of fascia Bovie cautery. Fascia was incised with Bovie cautery and extended bilaterally with Bovie cautery. Fascia was dissected of the rectus abdominis muscle Bovie cautery superiorly and inferiorly and split in the midline bluntly. The underlying peritoneum was entered by tented peritoneum and incising it with Metzenbaum scissors with good visualization of underlying structures. The peritoneal incision was extended bilaterally and superiorly and inferiorly. The vesicouterine peritoneum was identified as well and tented and dissected bilaterally with Metzenbaum scissors. Bladder flap was created and retracted with the lower edge of the [place]. Uterine incision was created with the scalpel and extended bilaterally with bandage scissors. Infants head was delivered atraumatically in right occiput anterior presentation. Suction at the level of the incision, the rest of infants body was delivered atraumatically. Cord clamped and cut. handed to awaiting pediatricians. The placenta was expressed manually from the uterus. Uterus was cleared of clots and debris, and repaired with 1-0 Biosyn in running locking fashion. A second imbricating layer with 1-0 Biosyn was made on the lower uterine segment covering the initial incision. Excellent hemostasis was achieved. Bilateral normal tubes and ovaries were visualized. The abdomen was irrigated with normal saline. The peritoneum was repaired with 0 Biosyn, muscle was reapproximated with 0 Biosyn in the midline, the fascia was repaired with 0 Vicryl, and skin was reapproximated with 4-0 Biosyn. COUNTS: Sponge and instrument counts were correct x2. CONDITION: The patient tolerated the procedure well and was brought to the recovery room in stable condition. ESTIMATED BLOOD LOSS: 600 mL. URINE OUTPUT: 300 mL. FLUIDS: Patient received 2000 mL of IV fluids. Tressa [id number]
--- NOTE | 2018-04-25 18:08 | PATH ---
Surgical Pathology Report Patient Name: ANGELA GAGE Med. Rec. #: [id number] /Age/Gender: 1985 (Age: 32) / F Account: [id number] Location: [facility] OBS/AUTO GARAGE MECHANIC Taken: 04/11/2018 Received: 04/12/2018 Reported: 04/25/2018 Physicians: Abi Salas M.D. Specimen(s) Received PLACENTA Clinical History Increased 1 H GCT, 3 H GTT WNL, history of iron transfusions x4 Admitted 03/05 for labor Final Diagnosis PLACENTA, SECTION: 481 G THIRD TRIMESTER PLACENTA WITH TRIVASCULAR UMBILICAL CORD AND UNREMARKABLE PLACENTAL MEMBRANES. Electronically Signed Rebecca Lee M.D. Gross Description The specimen is received fresh labeled placenta and is a 481 gram, 17.0 x 13.0 x 3.0 cm. placenta with attached membranes and umbilical cord. The attached membranes are escobar, translucent with focal opacities and insert marginally. The umbilical cord measures 13.5 cm. in length and averages 1.2 cm. in diameter. The cord inserts eccentrically, 4.5 cm. to the nearest margin. No true knots or strictures are identified. Cut surface of the umbilical cord reveals 3 vessels. The surface is ritter blue with moderate fibrin deposition and appropriate caliber vessels. The maternal surface is red-brown with focal defects. Sectioning reveals red-brown, spongy parenchyma. No lesions are identified. Manager Technical Training sections are submitted in three cassettes as follows: 1- membrane rolls and umbilical cord; 2-3- full thickness sections of placenta. 04/19/2018 [facility]04/19/2018
== END 2018-04-14 12:30 | disposition home or self-care (01) | DRG 788 ==
LOC: JLDR 08:25 → J3W 20:23
PROVIDERS: ADMIT Obstetrics & Gynecology; ATTEND Obstetrics & Gynecology
PROC: 10D00Z1 Extraction of Products of Conception, Low, Open Approach (ICD-10-PCS; principal; 2018-04-11)
DX: O34.219 Maternal care for unspecified type scar from previous cesarean delivery (principal); Z3A.39 39 weeks gestation of pregnancy; Z37.0 Single live birth
CPT/HCPCS: 36415; 36600; 82803; 85025; 88307-TC